=== PATIENT | female | born 1980 | race African-American/Black ===

== ENCOUNTER 2018-07-12 14:57 | Inpatient (IN) | payer OTHER ==
[2018-07-12 15:36] VITALS: BMI 24.4
--- NOTE | 2018-07-12 18:18 | HP ---
Admission [facility] - [facility] Chief Complaint: crack / cocaine rehab Allergies/Adverse Reactions: Allergies Allergy/AdvReac Type Severity Reaction Status Date / Time No Known Allergies Allergy Verified 07/12/18 17:15 History of Present Illness: 37 yo female with hx of nicotine and crack cocaine dependence is here seeking rehabilitation. Utox positive for opiate, reports tried heroin once two days ago. Last EOTH detox at [facility] March 2018, reports it was a one time occasion. Reports rehab [facility], reports sobriety for three years and recently relapse. PMHX: anemia. Denies any psychiatric history. Denies suicidal / homicidal ideation. Denies hx of seizures or blackouts. Exam Limitations: No Limitations - Ebola screening Have you traveled outside of the country in the last 21 days: No Have you had contact with anyone from an Ebola affected area: No Have you been sick,other than usual withdrawal symptoms: No - Review of Systems Constitutional: Changes in sleep, Unintentional Wgt. Loss (20 lbs in one year), Other (fatigue) EENT: reports: No Symptoms Reported Respiratory: reports: No Symptoms reported Cardiac: reports: No Symptoms Reported GI: reports: No Symptoms Reported : reports: No Symptoms Reported Musculoskeletal: reports: No Symptoms Reported Integumentary: reports: No Symptoms Reported Neuro: reports: No Symptoms reported Endocrine: reports: No Symptoms Reported Hematology: reports: See HPI Psychiatric: reports: Judgement Intact, Mood/Affect Appropiate, Orientated x3 Other Systems: Reviewed and Negative Patient History - Patient Medical History Hx Anemia: Yes Hx Asthma: No Hx Chronic Obstructive Pulmonary Disease (COPD): No Hx Cancer: No Hx Cardiac Disorders: No Hx Congestive Heart Failure: No Hx Hypertension: No Hx Hypercholesterolemia: No Hx Pacemaker: No HX Cerebrovascular Accident: No Hx Seizures: No Hx Dementia: No Hx Diabetes: No Hx Gastrointestinal Disorders: No Hx Liver Disease: No Hx Genitourinary Disorders: No Hx Sexually Transmitted Disorders: No Hx Renal Disease (ESRD): No Hx Thyroid Disease: No Hx Human Immunodeficiency Virus (HIV): No (last tested one year ago with negative results) Hx Hepatitis C: No Hx Depression: No Hx Suicide Attempt: No Hx Bipolar Disorder: No Hx Schizophrenia: No - Patient Surgical History Past Surgical History: Yes Hx Neurologic Surgery: No Hx Cataract Extraction: No Hx Cardiac Surgery: No Hx Lung Surgery: No Hx Breast Surgery: No Hx Breast Biopsy: No Hx Abdominal Surgery: No Hx Appendectomy: No Hx Cholecystectomy: No Hx Genitourinary Surgery: No Hx Section: Yes (4x ) Anesthesia Reaction: No - PPD History Previous Implant?: No Documented Results: Negative w/o proof PPD to be Administered?: Yes - Reproductive History Patient is a Female of Child Bearing Age (11 -55 yrs old): Yes Last Menstrual Period: 06/28/18 Patient : No - Smoking Cessation Smoking history: Current every day smoker Have you smoked in the past 12 months: Yes Aproximately how many cigarettes per day: 20 Hx Chewing Tobacco Use: No Initiated information on smoking cessation: Yes 'Breaking Loose' booklet given: 07/12/18 - Substance & Tx. History Hx Alcohol Use: Yes (detox March 2018) Hx Substance Use: Yes Substance Use Type: Cocaine Hx Substance Use Treatment: Yes Family Disease History - Family Disease History Family Disease History: Diabetes: Father (alive) Admission Physical Exam BHS - Vital Signs Vital Signs: Vital Signs - 24 hr 07/12/18 15:30 Temperature 98.5 F Pulse Rate 84 Respiratory 19 Rate Blood Pressure 120/74 - Physical General Appearance: Yes: Disheveled, Thin, Anxious HEENTM: Yes: EOMI, Hearing grossly Normal, Normal ENT Inspection, Normocephalic , Normal Voice, BELINDA, Pharynx Normal, Tm's normal Respiratory: Yes: Chest Non-Tender, Lungs Clear, Normal Breath Sounds, No Respiratory Distress, No Accessory Muscle Use Neck: Yes: Within Normal Limits Breast: Yes: Breast Exam Deferred Cardiology: Yes: Regular Rhythm, Regular Rate Abdominal: Yes: Normal Bowel Sounds, Non Tender, Flat, Soft Genitourinary: Yes: Within Normal Limits Back: Yes: Normal Inspection Musculoskeletal: Yes: full range of Motion, Gait Steady, Pelvis Stable Extremities: Yes: Normal Capillary Refill, Normal Inspection, Normal Range of Motion, Non-Tender Neurological: Yes: radiology manager II-XII NML intact, Fully Oriented, Alert, Motor Strength 5/5 Integumentary: Yes: Normal Color, Dry, Warm Lymphatic: Yes: Within Normal Limits - Diagnostic (1) Cocaine dependence Current Visit: Yes Status: Acute Qualifiers: Substance use status: uncomplicated Qualified Code(s): F14.20 - Cocaine dependence, uncomplicated (2) Nicotine dependence Current Visit: Yes Status: Acute Qualifiers: Nicotine product type: cigarettes (3) Anemia Current Visit: Yes Status: Suspected Qualifiers: Anemia type: unspecified type Qualified Code(s): D64.9 - Anemia, unspecified BHS Breath Alcohol Content Breath Alcohol Content: 0 Urine Pregancy Test - Result Urine Test Results: Negative- NO Line Present Urine Drug Screen - Results Drug Screen Negative: No Urine Drug Screen Results: BENIGNO-Cocaine, OPI-Opiates Inpatient Rehab Admission - Initial Determination Are CD services needed?: Yes Free of communicable disease: Yes Not in need of hospitalization: Yes - Rehab Admission Criteria Previous failed treatment: Yes Poor recovery environment: Yes Comorbidities: Yes Lacks judgement: Yes Patient is meeting Inpatient Rehab admission criteria:: Yes
[2018-07-12] MEDS ORDERED: guaiFENesin/D-METHORPHAN HB 10 ML UNIT-DOSE CUPS PO PRN (18:23)
[2018-07-12] MEDS ORDERED: hydrOXYzine PAMOATE 50 MG CAPSULE (FP) PO PRN (18:23)
[2018-07-12] MEDS ORDERED: MAGNESIUM HYDROX 2400MG/30ML ORAL SUSPENSION 30 ML CUP PO PRN (18:23)
[2018-07-12] MEDS ORDERED: MENTHOL/PHENOL 1 EACH UD MM PRN (18:23)
[2018-07-12] MEDS ORDERED: P-EPHED 60MG/TRIPROLIDI 2.5MG TABLET PO PRN (18:23)
[2018-07-12] MEDS ORDERED: MAG HYDROX/AL HYDROX/SIMETH 30 ML UNIT-DOSE CUP PO PRN (18:23)
[2018-07-12] MEDS ORDERED: LOPERAMIDE HCL 2 MG CAPSULE PO PRN (18:23)
[2018-07-12] MEDS ORDERED: ACETAMINOPHEN 325 MG TABLET (FP) PO PRN (18:23)
[2018-07-12] MEDS ORDERED: IBUPROFEN 400 MG TABLET (FP) PO PRN (18:23)
[2018-07-12] MEDS ORDERED: MAGNESIUM CITRATE 300 ML BOTTLE PO PRN (18:23)
[2018-07-12] MEDS ORDERED: NICOTINE POLACRILEX 2 MG GUM BC PRN (18:23)
[2018-07-12] MEDS ORDERED: THIAMINE HCL 100 MG TABLET (FP) PO SCH (22:00)
[2018-07-12] MEDS ORDERED: MELATONIN 5 MG TABLETS PO PRN (22:00)
[2018-07-12] MEDS ORDERED: TUBERCULIN PPD 5 TU/0.1ML VIAL ID ONE (22:28)
[2018-07-12 23:07] LABS: URINE APPEARANCE SLCLOUDY; URINE BILIRUBIN NEGATIVE (<2.0 mg/dL); URINE COLOR YELLOW; URINE GLUCOSE (UA) NEGATIVE (NEGATIVE); URINE KETONE NEGATIVE (NEGATIVE); URINE LEUK ESTERASE TRACE (NEGATIVE); URINE NITRITE NEGATIVE (NEGATIVE); URINE PROTEIN 1+ (NEGATIVE); URINE UROBILINOGEN 4.0 E.U/dl mg/dL (0.2-1.0)
[2018-07-12 23:10] LABS: EPI CELLS MODERATE /HPF (FEW); URINE MUCUS MODERATE
[2018-07-12] MEDS ORDERED: PT OWN MED DRAWER 7, Y5N ONE (23:21)
[2018-07-13 07:40] VITALS: TEMP 98.4
[2018-07-13] MEDS ORDERED: PRENATAL VITAMINS W/ FOLIC ACID TABLET (FP) PO SCH (10:00)
[2018-07-13] MEDS ORDERED: NICOTINE 21 MG/24 HOURS TOPICAL PATCH TD SCH (10:00)
[2018-07-13 10:42] LABS: HEMATOCRIT 23.3 % (32.4-45.2); MCHC 26.8 g/dl (32.0-36.0); MEAN CELL VOLUME 55.3 fl (80-96); PLATELET COUNT 296 K/MM3 (134-434); RBC 4.22 M/mm3 (3.60-5.2); RDW 19.5 % (11.6-15.6); WHITE BLOOD COUNT 4.6 K/mm3 (4.0-10.0)
[2018-07-13 10:46] LABS: MCH 14.8 pg (25.7-33.7)
[2018-07-13 10:50] LABS: HEMOGLOBIN 6.3 GM/dL (10.7-15.3)
--- NOTE | 2018-07-13 11:00 | EKG ---
Test Reason : Blood Pressure : / mmHG Vent. Rate : 078 BPM Atrial Rate : 078 BPM P-R Int : 126 ms QRS Dur : 076 ms QT Int : 360 ms P-R-T Axes : 036 067 054 degrees QTc Int : 410 ms SINUS RHYTHM WITH PREMATURE ATRIAL COMPLEXES OTHERWISE NORMAL ECG Confirmed by MD MONA, SHARIF ([id number]) on 07/13/2018 10:59:58 AM Referred By: Confirmed By:SHARIF DUNN MD
[2018-07-13 11:40] LABS: ALBUMIN 3.2 g/dl (3.4-5.0); ALK PHOS 53 U/L (45-117); ANION GAP 9 MMOL/L (8-16); BILIRUBIN,TOTAL 0.3 mg/dL (0.2-1); BLOOD UREA NITROGEN 10 mg/dL (7-18); CALCIUM 8.6 mg/dL (8.5-10.1); CHLORIDE 110 mmol/L (98-107); CO2 23 mmol/L (21-32); CREATININE 0.8 mg/dL (0.55-1.3); GLUCOSE,RANDOM 85 mg/dL (74-106); POTASSIUM 4.2 mmol/L (3.5-5.1); SGOT/AST 9 U/L (15-37); SGPT/ALT 13 U/L (13-61); SODIUM 142 mmol/L (136-145); TOT PROT 6.1 g/dl (6.4-8.2)
--- NOTE | 2018-07-13 14:13 | PN ---
[facility] Progress Note Note: THIS IS A 37 Y/O AA/FEMALE WITH A HX OF IRON DEFFICIENCY ANEMIA WHO WAS ADMITTED HERE FOR REHAB DUE TO HX OF COCAINE DEPENDENCE. PT WAS SEEN FOR ABNORMAL LAB RESULTS-LOW HGB LEVEL OF 6.3 MG/DL AND HEMATOCRIT 23.3. PT C/O SOB,FATIGUE. PT REPORTS HX OF CHRONIC IRON DEFICIENCY ANEMIA AND HX BLOOD TRANSFUSION SINCE AGE 18. REPORTS HX HEAVY MONTHLY PERIODS, LAST WAS TWO WEEKS AGO. PT ALSO REPORTS TX WITH IRON INJECTIONS. Vital Signs 07/13/18 07:40 Temperature 98.4 F Pulse Rate 90 Respiratory 18 Rate Blood Pressure 129/87 Laboratory Tests 07/12/18 07/13/18 07/13/18 21:20 07:20 07:20 WBC 4.6 RBC 4.22 Hgb 6.3 L* Hct 23.3 L MCV 55.3 L MCH 14.8 L MCHC 26.8 L RDW 19.5 H Plt Count 296 MPV 9.0 Sodium 142 Potassium 4.2 Chloride 110 H Carbon Dioxide 23 Anion Gap 9 BUN 10 Creatinine 0.8 Creat Clearance w eGFR > 60 Random Glucose 85 Calcium 8.6 Total Bilirubin 0.3 AST 9 L ALT 13 Alkaline Phosphatase 53 Total Protein 6.1 L Albumin 3.2 L Urine Color Yellow Urine Appearance Slcloudy Urine pH 7.0 Ur Specific [place] 1.025 Urine Protein 1+ H Urine Glucose (UA) Negative Urine Ketones Negative Urine Blood Negative Urine Nitrite Negative Urine Bilirubin Negative Urine Urobilinogen 4.0 e.u/dl H Ur Leukocyte Esterase Trace Urine WBC (Auto) 2 Urine RBC (Auto) <1 Ur Epithelial Cells Moderate Urine Mucus Moderate RPR Titer HIV 1&2 Antibody Screen HIV P24 Antigen 07/13/18 07/13/18 07:20 07:20 WBC RBC Hgb Hct MCV MCH MCHC RDW Plt Count MPV Sodium Potassium Chloride Carbon Dioxide Anion Gap BUN Creatinine Creat Clearance w eGFR Random Glucose Calcium Total Bilirubin AST ALT Alkaline Phosphatase Total Protein Albumin Urine Color Urine Appearance Urine pH Ur Specific [place] Urine Protein Urine Glucose (UA) Urine Ketones Urine Blood Urine Nitrite Urine Bilirubin Urine Urobilinogen Ur Leukocyte Esterase Urine WBC (Auto) Urine RBC (Auto) Ur Epithelial Cells Urine Mucus RPR Titer Nonreactive HIV 1&2 Antibody Screen Negative HIV P24 Antigen Negative CARDIAC: S1 S2 EARLY SYSTOLIC MURMUR ON AUSCULTATION EKG:NSR, NORMAL ECG LUNGS:CLEAR TO A/P MUCUS MEMBRANES:PALE CONJUCTIVA, UNDER TONGUE AND LIPS PLAN:TRANSFER TO [facility]IA [facility]ULANCE FOR EVALUATION AND POSSIBLE TREATMENT. DISCUSSED CASE WITH DR. BOLAÑOS AT THE ER WHO HAVE AGREED TO ACCEPT THE PATIENT. PT MAY COME BACK TO [facility] TO COMPLETE HER REHAB TREATMENT AFTER TREATMENT AND CLEARANCE.
[2018-07-13 14:14] VITALS: BP 147/83; PULSE 93
--- NOTE | 2018-07-14 11:45 | EKG ---
Test Reason : Blood Pressure : / mmHG Vent. Rate : 069 BPM Atrial Rate : 069 BPM P-R Int : 136 ms QRS Dur : 072 ms QT Int : 388 ms P-R-T Axes : 039 073 055 degrees QTc Int : 415 ms NORMAL SINUS RHYTHM NORMAL ECG WHEN COMPARED WITH ECG OF 12-JUL-2018 21:39, PREMATURE ATRIAL COMPLEXES ARE NO LONGER PRESENT Confirmed by FÁTIMA MCKEE MD ([id number]) on 07/14/2018 11:45:02 AM Referred By: Confirmed By:FÁTIMA MCKEE MD
== END 2018-07-13 22:55 | disposition short-term general hospital (02) | DRG 772 ==
LOC: YASAS 14:57 → Y3E 17:32
PROVIDERS: ADMIT Psychiatry & Neurology Psychiatry; ATTEND Psychiatry & Neurology Psychiatry
PROC: HZ42ZZZ Group Counseling for Substance Abuse Treatment, Cognitive-Behavioral (ICD-10-PCS; principal; 2018-07-12)
DX: F14.20 Cocaine dependence, uncomplicated (principal); F17.210 Nicotine dependence, cigarettes, uncomplicated; D50.9 Iron deficiency anemia, unspecified
CPT/HCPCS: 36415; 80053; 81003; 81015; 85027; 86593; 87389; 93005; 93010

== ENCOUNTER 2018-07-13 15:11 | Observation (INO) | payer OTHER ==
[2018-07-13 15:26] VITALS: BMI 26.4
--- NOTE | 2018-07-13 15:51 | PDOC ---
History of Present Illness - General Chief Complaint: Revisit, Lab Variance Stated Complaint: low H&H hx of anemia Time Seen by Provider: 07/13/18 15:17 History Source: Patient Exam Limitations: No Limitations - History of Present Illness Initial Comments: 07/13/18 15:47 Patient is a 37F with history of cocaine abuse and iron deficiency anemia here today complaining of a low hemoglobin level at [facility]. She states that she has been dyspneic on exertion and weak more lately but she thought that was due to the smoking. Patient also endorses a history of heavy menstruation, last menstruation ended two weeks ago. Denies blood in stool/vomit, diarrhea, melena. Denies fevers, chills. Last use of cocaine 2 days ago. Patient states that she used heroin two days ago but is not a regular user. Patient reports history of transfusions at [facility] in [place]. Past History - Past Medical History Allergies/Adverse Reactions: Allergies Allergy/AdvReac Type Severity Reaction Status Date / Time No Known Allergies Allergy Verified 07/12/18 17:15 Home Medications: Ambulatory Orders NK [No Known Home Medication] 07/12/18 Anemia: Yes Asthma: No Cancer: No Cardiac Disorders: No CVA: No COPD: No CHF: No Dementia: No Diabetes: No GI Disorders: No Disorders: No HTN: No Hypercholesterolemia: No Kidney Stones: No Liver Disease: No Seizures: No Thyroid Disease: No - Surgical History Abdominal Surgery: No Appendectomy: No Cardiac Surgery: No Cholecystectomy: No Lung Surgery: No Neurologic Surgery: No - Reproductive History PID: No - Suicide/Smoking/Psychosocial Hx Smoking History: Unknown if ever smoked Have you smoked in the past 12 months: Yes Number of Cigarettes Smoked Daily: 20 'Breaking Loose' booklet given: 07/12/18 Hx Alcohol Use: Yes (detox March 2018) Drug/Substance Use Hx: Yes Substance Use Type: Cocaine Hx Substance Use Treatment: No Review of Systems - Review of Systems Comments:: 07/13/18 15:55 GENERAL/CONSTITUTIONAL: No fever or chills. No weakness. HEAD, EYES, EARS, NOSE AND THROAT: No change in vision. No sore throat. CARDIOVASCULAR: No chest pain +shortness of breath RESPIRATORY: No cough, wheezing, or hemoptysis. GASTROINTESTINAL: No nausea, vomiting, diarrhea or constipation. GENITOURINARY: No dysuria, frequency, or change in urination. MUSCULOSKELETAL: No joint or muscle swelling or pain. No neck or back pain. SKIN: No rash NEUROLOGIC: No headache, vertigo, loss of consciousness, or change in strength/ sensation. ENDOCRINE: No increased thirst. No abnormal weight change HEMATOLOGIC/LYMPHATIC: No anemia, easy bleeding, or history of blood clots. ALLERGIC/IMMUNOLOGIC: No hives or skin allergy. *Physical Exam - Vital Signs Last Vital Signs Temp Pulse Resp BP Pulse Ox 98.4 F 93 H 20 147/83 98 07/13/18 15:18 07/13/18 15:18 07/13/18 15:18 07/13/18 15:18 07/13/18 15:18 - Physical Exam Comments: 07/13/18 15:57 GENERAL: Awake, alert, and fully oriented, in no acute distress HEAD: No signs of trauma, normocephalic, atraumatic EYES: PERRLA, EOMI, sclera anicteric, conjunctiva clear ENT: Auricles normal inspection, hearing grossly normal, nares patent, oropharynx clear without exudates. Moist mucosa NECK: Normal ROM, supple, no lymphadenopathy, JVD, or masses LUNGS: No distress, speaks full sentences, clear to auscultation bilaterally HEART: Regular rate and rhythm, normal S1 and S2, no murmurs, rubs or gallops, peripheral pulses normal and equal bilaterally. ABDOMEN: Soft, nontender, normoactive bowel sounds. No guarding, no rebound. No masses EXTREMITIES: Normal inspection, Normal range of motion, no edema. No clubbing or cyanosis. NEUROLOGICAL: Cranial nerves II through XII grossly intact. Normal speech, normal gait, no focal sensorimotor deficits SKIN: Warm, Dry, normal turgor, no rashes or lesions noted. ED Treatment Course - LABORATORY CBC & Chemistry Diagram: 07/13/18 16:28 07/13/18 16:28 Medical Decision Making - Medical Decision Making 07/13/18 15:57 Patient is a 37F with history of iron deficiency anemia and cocaine abuse here today for anemia (hgb 6.3). Drug screen positive for cocaine and heroin. Patient denies chest pain, endorses feeling tired and shortness of breath on exertion. Labs already drawn this morning. Will admit to hospitalist. Admitted to Dr Tavarez. 07/13/18 17:16 EKG shows normal sinus rhythm with rate of 77. No st elevations/depressions. Normal axis. Normal intervals. No significant t wave abnormalities. *DC/Admit/Observation/Transfer Diagnosis at time of Disposition: Anemia - Discharge Dispostion Condition at time of disposition: Stable Decision to Admit order: Yes - Referrals - Patient Instructions - Post Discharge Activity
--- NOTE | 2018-07-13 16:01 | PDOC ---
Attending Attestation - Resident Resident Name: Evan Payne - ED Attending Attestation I have performed the following: I have examined & evaluated the patient, The case was reviewed & discussed with the resident, I agree w/resident's findings & plan - HPI HPI: 07/13/18 15:59 37-year-old female rehabilitation patient at [facility] sent for medical evaluation of symptomatic anemia found on routine admission labs. - Physicial Exam PE: 07/13/18 15:59 Vitals as noted, hemodynamically stable. lungs clear, heart regular with slight tachy no edema or calf ttp - Medical Decision Making 07/13/18 16:00 37y/o F sent for management of symptomatic anemia, Hgb 6.3. t+c, transfuse prbc admit Heart Score/ECG Review #1 ECG reviewed & interpreted by me at: 16:48 General ECG Interpretation: Sinus Rhythm, Normal Rate (77), Normal Intervals ( qtc 418), No acute ischemic changes
--- NOTE | 2018-07-13 16:20 | HP ---
CHIEF COMPLAINT:Low hemoglobin [place] [facility] [place]ISTORY OF PRESENT ILLNESS: 37F PMH of iron deficiency anemia, crack cocaine use, and nicotine dependance, presents to the hospital from [facility] for low hemoglobin. Patient was admitted to inpatient rehab services for crack use. She did not need detox. She [place] [facility] [place] came here to get out of her environment so she could get clean and sober. She states that at the reh[place] [facility] too many familiar faces and it is very easy for her to leave to use. She states she has had iron deficiency anemia for the past 16 years. She states she was worked up by WEIGHT LOSS COUNSELOR and found to have fibroids as the cause of her iron deficiency anemia. She has menorrhagia due to fibroids and uses about 6 pads a day when she is having her menstrual periods. She endorses occasional spotting in between. She was worked up but never went back. She has had multiple transfusion and iron infusions. Last transfusion and iron infusion about 1 year ago. She states she was feeling weak and short of breath and attributed the shortness of breath to cigarette smoking and deconditioning but when she gave her history of anemia to [facility] they naheed labs and found her Hb to be 6.3 so she was sent to the ED for transfusion. She used to see a merchandise manager but hasn't seem on in about a year due to her substance abuse. She currently denies nausea vomiting fever chills chest pain urinary or GI symptoms. Endorses feeling weak and mild shortness of breath. Her last use was 2 days ago. Patient also had positive urine for opioids and she admits to trying heroin once 2 days ago. She expressed interest in wanting to go back to see her merchandise manager [place] [facility] [place] whom she has a relationship with. She also was worked up by GI with a colonoscopy and was WNL per patient. She endorses GERD symptoms. ER course was notable for: (1)Labs Recent Travel:Denies PAST MEDICAL HISTORY:As above PAST SURGICAL HISTORY: tubal ligation Social History: SmokinPPD Alcohol:Denies Drugs: Smokes Crack cocaine Family History: Allergies No Known Allergies Allergy (Verified 07/12/18 17:15) HOME MEDICATIONS: Home Medications Medication Instructions Recorded NK [No Known Home Medication] 07/12/18 REVIEW OF SYSTEMS CONSTITUTIONAL: Absent: fever, chills, diaphoresis, malaise, loss of appetite, weight change Present:generalized weakness HEENT: Absent: rhinorrhea, nasal congestion, throat pain, throat swelling, difficulty swallowing, mouth swelling, ear pain, eye pain, visual changes CARDIOVASCULAR: Absent: chest pain, syncope, palpitations, irregular heart rate, lightheadedness , peripheral edema RESPIRATORY: Absent: cough, orthopnea, wheezing, stridor, hemoptysis Present:shortness of breath, dyspnea with exertion GASTROINTESTINAL: Absent: abdominal pain, abdominal distension, nausea, vomiting, diarrhea, constipation, melena, hematochezia GENITOURINARY: Absent: dysuria, frequency, urgency, hesitancy, hematuria, flank pain, genital pain MUSCULOSKELETAL: Absent: myalgia, arthralgia, joint swelling, back pain, neck pain SKIN: Absent: rash, itching, pallor HEMATOLOGIC/IMMUNOLOGIC: Absent: easy bleeding, easy bruising, lymphadenopathy, frequent infections ENDOCRINE: Absent: unexplained weight gain, unexplained weight loss, heat intolerance, cold intolerance NEUROLOGIC: Absent: headache, focal weakness or paresthesias, dizziness, unsteady gait, seizure, mental status changes, bladder or bowel incontinence PSYCHIATRIC: Absent: anxiety, depression, suicidal or homicidal ideation, hallucinations. PHYSICAL EXAMINATION Vital Signs - 24 hr 07/13/18 15:18 Temperature 98.4 F Pulse Rate 93 H Respiratory 20 Rate Blood Pressure 147/83 O2 Sat by Pulse 98 Oximetry (%) GENERAL: Awake, alert, and fully oriented, in no acute distress. HEAD: Normal with no signs of trauma. EYES: Pupils equal, round and reactive to light, extraocular movements intact, + conjunctival pallor EARS, NOSE, THROAT: Moist mucous membranes. NECK: Normal range of motion, supple without JVD LUNGS: Breath sounds equal, clear to auscultation bilaterally. No accessory muscle use. HEART: Regular rate and rhythm, normal S1 and S2. Possibly a very soft flow murmur. Loud in the emergency room so difficult to hear ABDOMEN: Soft, nontender, not distended, normoactive bowel sounds MUSCULOSKELETAL: No CVA tenderness. UPPER EXTREMITIES: warm, well-perfused. No peripheral edema. LOWER EXTREMITIES: warm, well-perfused. No calf tenderness. No peripheral edema. NEUROLOGICAL: Cranial nerves II-XII intact. Normal speech. Gait not observed PSYCHIATRIC: Cooperative. Good eye contact. Appropriate mood and affect. SKIN: Warm, dry, normal turgor ASSESSMENT/PLAN: 37F with history of crack cocaine use, presents to the hospital from [facility] rehab for symptomatic anemia. Acute on chronic symptomatic iron deficiency anemia:Patient with fibroids and menorrhagia. Place on Observation Type and cross Transfuse 2 units PRBCs Trend CBC Patient wants to go back to see primary merchandise manager in [place] Refer back to WEIGHT LOSS COUNSELOR for treatment of fibroids Refer back to GI for possible EGD and further work up. Substance abuse:smokes crack cocaine Send back to [facility] for continued inpatient rehab Counselled on drug abuse cessation counselled on going to meetings and continuing rehab and intensive outpatient therapy after rehab Nicotine Dependance: Nicotine patch counselled on smoking cessation FEN: No IVF No electrolyte issues Regular diet PPx: SCDs/Early ambulation Case discussed with Dr. Tavarez Visit type - Emergency Visit Emergency Visit: Yes ED Registration Date: 07/13/18 Care time: The patient presented to the Emergency Department on the above date and was hospitalized for further evaluation of their emergent condition. - New Patient This patient is new to me today: Yes Date on this admission: 07/13/18 - Critical Care Critical Care patient: No Hospitalist Screening - Colonoscopy Questionnaire Colonoscopy Questionnaire: Colonoscopy Questionnaire - Patient: 50 - 75 years old and never had a screening colonoscopy: No (patient had colonoscopy a few years ago and was normal per patient) History of colon or rectal polyps, or CA: No History of IBD, Crohn's disease or UC: No History of abdominal radiation therapy as a child: No - Relative: 1 with colon or rectal CA, or polyps at age 60 or younger: No Colon or rectal CA diagnosed at age 45 or younger: No Multiple relatives with colon or rectal CA: No - Outcome: Screening Result: Negative Screen
[2018-07-13 16:36] LABS: HEMATOCRIT 24.1 % (32.4-45.2); MCHC 26.6 g/dl (32.0-36.0); MEAN CELL VOLUME 55.7 fl (80-96); MEAN PLT VOLUME 8.7 fl (7.5-11.1); PLATELET COUNT 327 K/MM3 (134-434); RBC 4.33 M/mm3 (3.60-5.2); RDW 19.6 % (11.6-15.6); WHITE BLOOD COUNT 5.4 K/mm3 (4.0-10.0)
[2018-07-13 16:44] LABS: MCH 14.8 pg (25.7-33.7)
[2018-07-13 16:46] LABS: HEMOGLOBIN 6.4 GM/dL (10.7-15.3)
[2018-07-13 16:52] LABS: INR 1.1 (0.83-1.09); PROTHROMBIN TIME (PATIENT) 12.4 SEC (9.7-13.0)
[2018-07-13 17:12] LABS: ALBUMIN 3.4 g/dl (3.4-5.0); ALK PHOS 58 U/L (45-117); ANION GAP 7 MMOL/L (8-16); BILIRUBIN,TOTAL 0.2 mg/dL (0.2-1); BLOOD UREA NITROGEN 8 mg/dL (7-18); CALCIUM 8.8 mg/dL (8.5-10.1); CHLORIDE 109 mmol/L (98-107); CO2 26 mmol/L (21-32); CREATININE 0.8 mg/dL (0.55-1.3); GLUCOSE,RANDOM 84 mg/dL (74-106); POTASSIUM 4.2 mmol/L (3.5-5.1); SGOT/AST 8 U/L (15-37); SGPT/ALT 13 U/L (13-61); SODIUM 142 mmol/L (136-145); TOT PROT 6.6 g/dl (6.4-8.2)
--- NOTE | 2018-07-13 18:31 | PN ---
Teaching Attending Note Name of Resident: Tyrone Colvin ATTENDING PHYSICIAN STATEMENT I saw and evaluated the patient. I reviewed the resident's note and discussed the case with the resident. I agree with the resident's findings and plan as documented with exceptions below. SUBJECTIVE: 37 yof with PMHx of cocaine abuse, anemia requiring multiple transfusions/IV iron, last a year ago, lost to follow up, also with reported menorrhagia/ Fibroids (not seen a senior director of global commercial technology solutions for the same), went to [facility] requesting cocaine detox, sent in with Hb 6.4 sent to ED. Patient reports fatigue, some exertional dyspnea, over last some time. Also reports heavy periods, lasting 5 days with intermittent spotting for a long time. Was told about 'fibroids' in the past but never followed up. No dark or blood stools or other concerns. Had colonoscopy few years ago reportedly unremarkable. Reports some GERD like symptoms intermittently, takes Aleve with her periods. Overall feels well currently. Reports using heroine a day ago but last use was reportedly years ago. 12 point ROS done, neg except above. OBJECTIVE: Vital Signs Period Temp Pulse Resp BP Sys/Alberts Pulse Ox Last 24 Hr 98.4 F-98.6 F 82-93 18-20 124-147/83-95 98-100 Intake & Output 07/10/18 07/11/18 07/12/18 07/13/18 23:59 23:59 23:59 23:59 Weight 135 lb GENERAL: Awake, alert, and fully oriented, in no acute distress. HEAD: Normal with no signs of trauma. EYES: Pupils equal, round and reactive to light, extraocular movements intact, sclera anicteric, conjunctiva clear. No lid lag, pos pallor. EARS, NOSE, THROAT: Ears normal, nares patent, oropharynx clear without exudates. Moist mucous membranes. NECK: Normal range of motion, supple without lymphadenopathy, JVD, or masses. LUNGS: Breath sounds equal, clear to auscultation bilaterally. No wheezes, and no crackles. No accessory muscle use. HEART: Regular rate and rhythm, normal S1 and S2 without murmur, rub or gallop. ABDOMEN: Soft, nontender, not distended, normoactive bowel sounds, no guarding, no rebound, no masses. No hepatomegaly or splenomegaly. no suprapubic or CVA tenderness MUSCULOSKELETAL: Normal range of motion at all joints. No bony deformities or tenderness. No CVA tenderness. UPPER EXTREMITIES: 2+ pulses, warm, well-perfused. No cyanosis. No clubbing. No peripheral edema. LOWER EXTREMITIES: 2+ pulses, warm, well-perfused. No calf tenderness. No peripheral edema. NEUROLOGICAL: Cranial nerves II-XII intact. Normal speech. PSYCHIATRIC: Cooperative. Good eye contact. Appropriate mood and affect. SKIN: Warm, dry, normal turgor, no rashes or lesions noted, normal capillary refill. Home Medications Medication Instructions Recorded NK [No Known Home Medication] 07/12/18 Active Medications Nicotine (Nicoderm Patch -) 21 mg TD DAILY RADHA Laboratory Results - last 24 hr 07/13/18 07/13/18 07/13/18 16:23 16:28 16:28 WBC 5.4 RBC 4.33 Hgb 6.4 L* Hct 24.1 L MCV 55.7 L MCH 14.8 L MCHC 26.6 L RDW 19.6 H Plt Count 327 MPV 8.7 PT with INR INR Sodium Potassium Chloride Carbon Dioxide Anion Gap BUN Creatinine Creat Clearance w eGFR Random Glucose Calcium Total Bilirubin AST ALT Alkaline Phosphatase Total Protein Albumin Serum , Qual Negative Crossmatch See Detail 07/13/18 07/13/18 16:28 16:28 WBC RBC Hgb Hct MCV MCH MCHC RDW Plt Count MPV PT with INR 12.40 INR 1.10 H Sodium 142 Potassium 4.2 Chloride 109 H Carbon Dioxide 26 Anion Gap 7 L BUN 8 Creatinine 0.8 Creat Clearance w eGFR > 60 Random Glucose 84 Calcium 8.8 Total Bilirubin 0.2 AST 8 L ALT 13 Alkaline Phosphatase 58 Total Protein 6.6 Albumin 3.4 Serum , Qual Crossmatch EKG NSR, T inversion in V1-V2 ASSESSMENT AND PLAN: 37 yof with chronic anemia, menorrhagia, ?fibroids, cocaine abuse admitted with symptomatic anemia -Symptomatic anemia, suspect from menorrhagia/?fibroids -Cocaine abuse -Heroine use Plan: Transfuse 2 units PRBC. Patient counseled on outpatient senior director of global commercial technology solutions follow up and interval CBC monitoring. HEmatology follow up as indicated. Drug cessation counseling. Detox consult. DVTPPX low risk Dispo d/c to [facility] in AM if h/h improved and no new concerns. Plan discussed with patient in detail, all questions answered. Total admit time 55 min.
[2018-07-13] MEDS: NICOTINE 21 MG/24 HOURS TOPICAL PATCH TD SCH (18:46)
[2018-07-14 07:46] LABS: HEMATOCRIT 31.2 % (32.4-45.2); HEMOGLOBIN 9.2 GM/dL (10.7-15.3); MCHC 29.3 g/dl (32.0-36.0); MEAN PLT VOLUME 8.7 fl (7.5-11.1); PLATELET COUNT 292 K/MM3 (134-434); RBC 5.04 M/mm3 (3.60-5.2); RDW 29.4 % (11.6-15.6); WHITE BLOOD COUNT 7.3 K/mm3 (4.0-10.0)
[2018-07-14 07:50] LABS: MCH 18.2 pg (25.7-33.7)
[2018-07-14] MEDS: NICOTINE 21 MG/24 HOURS TOPICAL PATCH TD SCH (09:24)
--- NOTE | 2018-07-14 12:31 | PN ---
Teaching Attending Note Name of Resident: Ashlee Dick ATTENDING PHYSICIAN STATEMENT I saw and evaluated the patient. I reviewed the resident's note and discussed the case with the resident. I agree with the resident's findings and plan as documented with exceptions below. SUBJECTIVE: patient seen and examined. no dyspnea. no further weakness or fatigue, feels well. OBJECTIVE: Vital Signs Period Temp Pulse Resp BP Sys/Alberts Pulse Ox Last 24 Hr 98 F-98.6 F 73-93 18-20 121-147/64-95 98-100 Intake & Output 07/11/18 07/12/18 07/13/18 07/14/18 23:59 23:59 23:59 23:59 Intake Total 600 1000 Balance 600 1000 Weight 124 lb 5 oz general: sitting in bed in no acute distress CVS;S1S2 regular Chest: CTAB, no rales or wheezing Abdomen:Soft, NT, ND, positive bowel sounds Extremities: no edema or tremors Home Medications Medication Instructions Recorded Docusate Sodium [Colace -] 100 mg PO BID #60 capsule 07/14/18 Ferrous Sulfate [Feosol] 325 mg PO DAILY #30 tablet 07/14/18 Laboratory Results - last 24 hr 07/13/18 07/13/18 07/13/18 16:15 16:23 16:28 WBC 5.4 RBC 4.33 Hgb 6.4 L* Hct 24.1 L MCV 55.7 L MCH 14.8 L MCHC 26.6 L RDW 19.6 H Plt Count 327 MPV 8.7 PT with INR INR Sodium Potassium Chloride Carbon Dioxide Anion Gap BUN Creatinine Creat Clearance w eGFR Random Glucose Calcium Ferritin Total Bilirubin AST ALT Alkaline Phosphatase Total Protein Albumin Serum , Qual Blood Type B POSITIVE B POSITIVE Antibody Screen Negative Crossmatch See Detail 07/13/18 07/13/18 07/13/18 16:28 16:28 16:28 WBC RBC Hgb Hct MCV MCH MCHC RDW Plt Count MPV PT with INR 12.40 INR 1.10 H Sodium 142 Potassium 4.2 Chloride 109 H Carbon Dioxide 26 Anion Gap 7 L BUN 8 Creatinine 0.8 Creat Clearance w eGFR > 60 Random Glucose 84 Calcium 8.8 Ferritin Total Bilirubin 0.2 AST 8 L ALT 13 Alkaline Phosphatase 58 Total Protein 6.6 Albumin 3.4 Serum , Qual Negative Blood Type Antibody Screen Crossmatch 07/14/18 07/14/18 07:09 07:09 WBC 7.3 RBC 5.04 Hgb 9.2 L Hct 31.2 L D MCV 62.0 L D MCH 18.2 L D MCHC 29.3 L RDW 29.4 H Plt Count 292 MPV 8.7 PT with INR INR Sodium Potassium Chloride Carbon Dioxide Anion Gap BUN Creatinine Creat Clearance w eGFR Random Glucose Calcium Ferritin 2.6 L Total Bilirubin AST ALT Alkaline Phosphatase Total Protein Albumin Serum , Qual Blood Type Antibody Screen Crossmatch ASSESSMENT AND PLAN: 37 yof with chronic anemia, menorrhagia, ?fibroids, cocaine abuse admitted with symptomatic anemia -Symptomatic anemia, suspect from menorrhagia/?fibroids/iron deficiency -Cocaine abuse -Heroine use Plan: Appropriate response to PRBC. Start PO Fe with colace. Patient counseled on regular CBC monitoring, Fe suppl and outpatient GI/Computer Security Coordinator follow up. She relays understanding and in agreement. D/c to [facility] today. Plan discussed with patient in detail, all questions answered.
[2018-07-14 12:39] VITALS: BP 135/83; PULSE 76; TEMP 98
--- NOTE | 2018-07-14 13:23 | EKG ---
Test Reason : Blood Pressure : / mmHG Vent. Rate : 077 BPM Atrial Rate : 077 BPM P-R Int : 132 ms QRS Dur : 072 ms QT Int : 370 ms P-R-T Axes : 018 047 041 degrees QTc Int : 418 ms NORMAL SINUS RHYTHM NORMAL ECG WHEN COMPARED WITH ECG OF 13-JUL-2018 11:13, NO SIGNIFICANT CHANGE WAS FOUND Confirmed by FÁTIMA MCKEE MD ([id number]) on 07/14/2018 1:22:57 PM Referred By: Confirmed By:FÁTIMA MCKEE MD
--- NOTE | 2018-07-14 17:52 | DS ---
Physical Exam: SUBJECTIVE: Patient seen and examined at bedside this morning. No acute events overnight. Patient denies weakness and shortness of breath, and reports that she feels well. OBJECTIVE: Vital Signs Period Temp Pulse Resp BP Sys/Alberts Pulse Ox Last 24 Hr 98 F-98.6 F 73-81 18-20 122-136/64-83 100-100 PHYSICAL EXAM GENERAL: The patient is awake, alert, and fully oriented, in no acute distress. NECK: Trachea midline, full range of motion, supple. LUNGS: Breath sounds equal, clear to auscultation bilaterally. HEART: Regular rate and rhythm, S1, S2 without murmur, rub or gallop. ABDOMEN: Soft, nontender, nondistended, normoactive bowel sounds. EXTREMITIES: 2+ pulses, warm, well-perfused, no edema. NEUROLOGICAL: Cranial nerves II through XII grossly intact. Normal speech, gait not observed. PSYCH: Normal mood, normal affect. SKIN: Warm, dry, normal turgor, no rashes or lesions noted. LABS Laboratory Results - last 24 hr 07/13/18 07/13/18 07/14/18 16:15 16:23 07:09 WBC 7.3 RBC 5.04 Hgb 9.2 L Hct 31.2 L D MCV 62.0 L D MCH 18.2 L D MCHC 29.3 L RDW 29.4 H Plt Count 292 MPV 8.7 Ferritin Blood Type B POSITIVE B POSITIVE Antibody Screen Negative Crossmatch See Detail 07/14/18 07:09 WBC RBC Hgb Hct MCV MCH MCHC RDW Plt Count MPV Ferritin 2.6 L Blood Type Antibody Screen Crossmatch HOSPITAL COURSE: Date of Admission:07/13/18 Date of Discharge: 07/14/18 Patient is a 37 year old female with past medical history of iron deficiency anemia, cocaine use and nicotine dependence, presented from [facility] due to weakness and shortness of breath, and found to have Hgb 6.3. Patient was transfused with 2 units of pRBC. Iron studies were done. Repeat CBC revealed Hgb 9.2. Patient was discharged to [facility] with instructions to continue taking iron supplements and to follow-up with primary care doctor for interval CBC monitoring. Patient was also advised to follow-up with OB-MUSICIAN INSTRUMENTAL for the fibroids. Minutes to complete discharge: 40 Discharge Summary Reason For Visit: ANEMIA Condition: Stable - Instructions Diet, Activity, Other Instructions: You were hospitalized here due to low blood counts. We gave you 2 units of blood and repeated your counts afterwards which were normal. In addition, your iron was checked again and your levels were low. Medications: We recommend continuing iron supplementation 325mg by MOUTH DAILY --This can be constipating so if you don't have regular bowel movements you can use over the counter stool softeners (like "Miralax" or "Colace" to help ) Your iron stores are very low and further iron level testing in pending Please have your medical doctor follow up on the results in 1-2 weeks and continue with iron supplementation as recommended above. Follow-up: You are going to be discharged back to [facility] to continue your inpatient rehab We recommend to follow-up with your ASSEMBLING FABRICATOR regularly due to your fibroids We recommend to follow-up with your GI doctor in [place] to see if he wants to do another scope Please follow with your primary care doctor. You are strongly advised to have your blood test (CBC) done at regular intervals with your doctor. You are being discharged to [facility] for continued management. Referrals: Ashley Gallegos MD [Primary Care Provider] - Disposition: I.P. ALCOHOL/SUBS ABUSE REHAB - Home Medications Comprehensive Discharge Medication List: Ambulatory Orders Docusate Sodium [Colace -] 100 mg PO BID #60 capsule 07/14/18 Ferrous Sulfate [Feosol] 325 mg PO DAILY #30 tablet 07/14/18 This patient is new to me today: Yes Date on this admission: 07/18/18 Emergency Visit: Yes ED Registration Date: 07/13/18 Care time: The patient presented to the Emergency Department on the above date and was hospitalized for further evaluation of their emergent condition. Critical Care patient: No - Discharge Referral Referred to [facility] Med P.C.: No
[2018-07-15 08:06] LABS: SERUM IRON SATURATION 13 % (15-55); TOTAL IRON BINDING CAPACITY 365 ug/dL (250-450); UIBC 317 ug/dL (131-425)
== END 2018-07-14 15:31 | disposition other institution (70) ==
LOC: JER 15:11 → JERBED 15:59 → J5S 18:12
PROVIDERS: ADMIT Hospitalist; ATTEND Hospitalist
PROC: 30233N1 Transfusion of Nonautologous Red Blood Cells into Peripheral Vein, Percutaneous Approach (ICD-10-PCS; principal; 2018-07-13)
DX: D64.9 Anemia, unspecified (principal); F14.10 Cocaine abuse, uncomplicated; F11.90 Opioid use, unspecified, uncomplicated
CPT/HCPCS: 36415; 36430; 80053; 82728; 83540; 83550; 84703; 85027; 85610; 86850; 86900; 86901; 86922; 93005; 93010; 99285-25; G0378; P9038; P9058

== ENCOUNTER 2018-07-14 17:01 | Inpatient (IN) | payer OTHER ==
[2018-07-14 17:30] VITALS: BMI 24.4
[2018-07-14] MEDS ORDERED: ACETAMINOPHEN 325 MG TABLET (FP) PO PRN (18:39)
[2018-07-14] MEDS ORDERED: IBUPROFEN 400 MG TABLET (FP) PO PRN (18:39)
[2018-07-14] MEDS ORDERED: MAG HYDROX/AL HYDROX/SIMETH 30 ML UNIT-DOSE CUP PO PRN (18:39)
[2018-07-14] MEDS ORDERED: MAGNESIUM CITRATE 300 ML BOTTLE PO PRN (18:39)
[2018-07-14] MEDS ORDERED: hydrOXYzine PAMOATE 50 MG CAPSULE (FP) PO PRN (18:39)
[2018-07-14] MEDS ORDERED: guaiFENesin/D-METHORPHAN HB 10 ML UNIT-DOSE CUPS PO PRN (18:39)
[2018-07-14] MEDS ORDERED: LOPERAMIDE HCL 2 MG CAPSULE PO PRN (18:39)
[2018-07-14] MEDS ORDERED: P-EPHED 60MG/TRIPROLIDI 2.5MG TABLET PO PRN (18:39)
[2018-07-14] MEDS ORDERED: MAGNESIUM HYDROX 2400MG/30ML ORAL SUSPENSION 30 ML CUP PO PRN (18:39)
[2018-07-14] MEDS ORDERED: MENTHOL/PHENOL 1 EACH UD MM PRN (18:39)
--- NOTE | 2018-07-14 18:48 | PN ---
[facility] Progress Note Note: Vital Signs Temperature 98.0 F 07/14/18 17:24 Pulse Rate 67 07/14/18 17:24 Respiratory Rate 18 07/14/18 17:24 Blood Pressure 140/70 07/14/18 17:24 O2 Sat by Pulse Oximetry (%) Patient was admitted 07/12/18 to rehab at out facility for crack /cocaine dependence, and [facility] after she was evaluated on 07/13/18 for anemia. During her admission patient receive 2 units of blood and was stabilized. Patient Aox3, currently stable. Upon discharge from [facility] the following recommendations were made: Follow-up: [place] [facility] [place] We recommend to follow-up with your CONTRACT ASSOCIATE MANAGER regularly due to your fibroids We recommend to follow-up with your GI doctor in [place] to see if he wants to do another scope Please follow with your primary care doctor. You are strongly advised to have your blood test (CBC) done at regular intervals with your doctor. Meds Docusate Sodium [Colace -] 100 mg PO BID #60 capsule 07/14/18 Ferrous Sulfate [Feosol] 325 mg PO DAILY #30 tablet 07/14/18
[2018-07-14] MEDS: THIAMINE HCL 100 MG TABLET (FP) PO SCH (21:44)
[2018-07-14] MEDS: DOCUSATE SODIUM 100 MG CAPSULE (FP) PO SCH (21:44)
[2018-07-14] MEDS ORDERED: MELATONIN 5 MG TABLETS PO PRN (22:00)
[2018-07-15] MEDS: PRENATAL VITAMINS W/ FOLIC ACID TABLET (FP) PO SCH (09:37)
[2018-07-15] MEDS: DOCUSATE SODIUM 100 MG CAPSULE (FP) PO SCH ×2 (09:37→21:46)
[2018-07-15] MEDS: FERROUS SO4 325 MG TABLET (FP) PO SCH (09:37)
[2018-07-15] MEDS: THIAMINE HCL 100 MG TABLET (FP) PO SCH (21:46)
[2018-07-16] MEDS: PRENATAL VITAMINS W/ FOLIC ACID TABLET (FP) PO SCH (09:49)
[2018-07-16] MEDS: FERROUS SO4 325 MG TABLET (FP) PO SCH (09:49)
[2018-07-16] MEDS: DOCUSATE SODIUM 100 MG CAPSULE (FP) PO SCH ×2 (09:49→21:33)
--- NOTE | 2018-07-16 10:07 | HP ---
Psychiatrist Admission - Data Date of interview: 07/16/18 Admission source: [facility] Identifying data: This is the first admission to [address] [place] [address] for this 37 years old single mother of 4 AA female(children reside with thier grandmother).Patient resides with her boyfriend,supported by PA. Medical History: Significant for Anemia,4 Cesarian sections,Breast cysts removal about 5 yo. Psychiatric History: denies Physical/Sexual Abuse/Trauma History: denies Vital Signs: Vital Signs - 24 hr 07/16/18 07/16/18 03:30 07:12 Temperature 98.4 F Pulse Rate 78 Respiratory 16 16 Rate Blood Pressure 122/80 Allergies/Adverse Reactions: Allergies Allergy/AdvReac Type Severity Reaction Status Date / Time No Known Allergies Allergy Verified 07/14/18 17:24 Date of last physical exam: 07/14/18 Concur with the findings of this exam: Yes - Substance Abuse/Tx History Hx Alcohol Use: No Hx Substance Use: Yes (cocaine since 27 yo,crack about the same time ,spendong $ 100) Substance Use Type: Cocaine Hx Substance Use Treatment: Yes (completed 21 months residential program 6 yo) Mental Status Exam - Mental Status Exam Alert and Oriented to: Time, Place, Person Cognitive Function: Grossly Intact Patient Appearance: Well Groomed Mood: Euthymic Affect: Appropriate, Mood Congruent Patient Behavior: Cooperative Speech Pattern: Clear Voice Loudness: Normal Thought Process: Goal Oriented Thought Disorder: Not Present Hallucinations: Denies Suicidal Ideation: Denies Homicidal Ideation: Denies Insight/Judgement: Fair Sleep: Fair Appetite: Good Muscle strength/Tone: Normal Gait/Station: Normal Psychiatric Findings - Problem List (Advance 1, 2,3) (1) Anemia Current Visit: Yes Status: Chronic (2) Cocaine dependence Current Visit: Yes Status: Chronic Qualifiers: (3) Nicotine dependence Current Visit: Yes Status: Chronic - Initial Treatment Plan Initial Treatment Plan: Will monitor porgress.
--- NOTE | 2018-07-16 10:10 | PN ---
[facility] Progress Note Note: PT C/O ABNORMAL VAGINAL DISCHARGE WITH FOUL SMELLING ODOR,FREQUENT URINATION AND CLEAR SECRETION. REPORTS HAD SIMILAR SX IN THE PAST AND TREATED WITH FLAGYL WITH RESOLUTION OF SX. Vital Signs 07/16/18 07/16/18 03:30 07:12 Temperature 98.4 F Pulse Rate 78 Respiratory 16 16 Rate Blood Pressure 122/80 IMPRESSION:BV PLAN:FLAGYL 500 MG PO BID X 7 DAYS INCREASE PO FLUIDS
[2018-07-16] MEDS: metroNIDAZOLE 250 MG TABLET PO SCH ×2 (11:01→21:33)
[2018-07-16] MEDS: THIAMINE HCL 100 MG TABLET (FP) PO SCH (21:33)
[2018-07-17] MEDS: metroNIDAZOLE 250 MG TABLET PO SCH ×2 (09:45→21:45)
[2018-07-17] MEDS: FERROUS SO4 325 MG TABLET (FP) PO SCH (09:45)
[2018-07-17] MEDS: DOCUSATE SODIUM 100 MG CAPSULE (FP) PO SCH ×2 (09:45→21:45)
[2018-07-17] MEDS: PRENATAL VITAMINS W/ FOLIC ACID TABLET (FP) PO SCH (09:46)
[2018-07-17] MEDS: THIAMINE HCL 100 MG TABLET (FP) PO SCH (21:45)
[2018-07-17] MEDS ORDERED: PT OWN MED DRAWER 7, Y5N ONE (22:40)
[2018-07-18] MEDS: DOCUSATE SODIUM 100 MG CAPSULE (FP) PO SCH ×2 (09:43→21:12)
[2018-07-18] MEDS: FERROUS SO4 325 MG TABLET (FP) PO SCH (09:43)
[2018-07-18] MEDS: metroNIDAZOLE 250 MG TABLET PO SCH ×2 (09:43→21:12)
[2018-07-18] MEDS: PRENATAL VITAMINS W/ FOLIC ACID TABLET (FP) PO SCH (09:44)
[2018-07-18] MEDS: THIAMINE HCL 100 MG TABLET (FP) PO SCH (21:12)
[2018-07-19] MEDS: metroNIDAZOLE 250 MG TABLET PO SCH ×2 (10:02→23:24)
[2018-07-19] MEDS: FERROUS SO4 325 MG TABLET (FP) PO SCH (10:03)
[2018-07-19] MEDS: PRENATAL VITAMINS W/ FOLIC ACID TABLET (FP) PO SCH (10:03)
[2018-07-19] MEDS: DOCUSATE SODIUM 100 MG CAPSULE (FP) PO SCH ×2 (10:03→23:24)
[2018-07-19] MEDS: THIAMINE HCL 100 MG TABLET (FP) PO SCH (23:24)
[2018-07-19] MEDS ORDERED: PT OWN MED DRAWER 7, Y5N ONE ×2 (23:27→23:30)
[2018-07-20] MEDS ORDERED: PT OWN MED DRAWER 7, Y5N ONE ×2 (08:51→15:18)
[2018-07-20] MEDS: DOCUSATE SODIUM 100 MG CAPSULE (FP) PO SCH ×2 (09:43→21:46)
[2018-07-20] MEDS: FERROUS SO4 325 MG TABLET (FP) PO SCH (09:43)
[2018-07-20] MEDS: metroNIDAZOLE 250 MG TABLET PO SCH ×2 (09:43→21:46)
[2018-07-20] MEDS: PRENATAL VITAMINS W/ FOLIC ACID TABLET (FP) PO SCH (09:44)
[2018-07-20] MEDS ORDERED: COLLOIDAL OATMEAL 1 BAR EACH TP PRN (14:17)
[2018-07-20] MEDS: MINERAL OIL/PETROLAT/WATER TOPICAL CREAM 113 GM JAR TP SCH (15:16)
[2018-07-20] MEDS: THIAMINE HCL 100 MG TABLET (FP) PO SCH (21:46)
[2018-07-21] MEDS: FERROUS SO4 325 MG TABLET (FP) PO SCH (10:07)
[2018-07-21] MEDS: DOCUSATE SODIUM 100 MG CAPSULE (FP) PO SCH ×2 (10:07→21:50)
[2018-07-21] MEDS: MINERAL OIL/PETROLAT/WATER TOPICAL CREAM 113 GM JAR TP SCH (10:07)
[2018-07-21] MEDS: PRENATAL VITAMINS W/ FOLIC ACID TABLET (FP) PO SCH (10:07)
[2018-07-21] MEDS: metroNIDAZOLE 250 MG TABLET PO SCH ×2 (10:07→21:50)
[2018-07-21] MEDS: THIAMINE HCL 100 MG TABLET (FP) PO SCH (21:49)
[2018-07-21] MEDS ORDERED: PT OWN MED DRAWER 7, Y5N ONE ×2 (22:23→22:34)
[2018-07-22] MEDS: PRENATAL VITAMINS W/ FOLIC ACID TABLET (FP) PO SCH (09:57)
[2018-07-22] MEDS: DOCUSATE SODIUM 100 MG CAPSULE (FP) PO SCH ×2 (09:57→21:18)
[2018-07-22] MEDS: FERROUS SO4 325 MG TABLET (FP) PO SCH (09:57)
[2018-07-22] MEDS: MINERAL OIL/PETROLAT/WATER TOPICAL CREAM 113 GM JAR TP SCH (09:57)
[2018-07-22] MEDS: metroNIDAZOLE 250 MG TABLET PO SCH ×2 (09:57→21:18)
[2018-07-22] MEDS ORDERED: PT OWN MED DRAWER 7, Y5N ONE ×2 (21:13→22:59)
[2018-07-22] MEDS: THIAMINE HCL 100 MG TABLET (FP) PO SCH (21:18)
[2018-07-23] MEDS ORDERED: PT OWN MED DRAWER 7, Y5N ONE ×2 (08:47→21:09)
[2018-07-23] MEDS: metroNIDAZOLE 250 MG TABLET PO SCH (10:26)
[2018-07-23] MEDS: DOCUSATE SODIUM 100 MG CAPSULE (FP) PO SCH ×2 (10:26→21:31)
[2018-07-23] MEDS: PRENATAL VITAMINS W/ FOLIC ACID TABLET (FP) PO SCH (10:26)
[2018-07-23] MEDS: FERROUS SO4 325 MG TABLET (FP) PO SCH (10:26)
[2018-07-23] MEDS: MINERAL OIL/PETROLAT/WATER TOPICAL CREAM 113 GM JAR TP SCH (10:27)
[2018-07-23] MEDS: THIAMINE HCL 100 MG TABLET (FP) PO SCH (21:31)
[2018-07-24] MEDS: DOCUSATE SODIUM 100 MG CAPSULE (FP) PO SCH ×2 (09:46→21:21)
[2018-07-24] MEDS: PRENATAL VITAMINS W/ FOLIC ACID TABLET (FP) PO SCH (09:46)
[2018-07-24] MEDS: MINERAL OIL/PETROLAT/WATER TOPICAL CREAM 113 GM JAR TP SCH (09:46)
[2018-07-24] MEDS: FERROUS SO4 325 MG TABLET (FP) PO SCH (09:46)
[2018-07-24] MEDS: THIAMINE HCL 100 MG TABLET (FP) PO SCH (21:21)
[2018-07-25] MEDS: PRENATAL VITAMINS W/ FOLIC ACID TABLET (FP) PO SCH (09:48)
[2018-07-25] MEDS: FERROUS SO4 325 MG TABLET (FP) PO SCH (09:48)
[2018-07-25] MEDS: MINERAL OIL/PETROLAT/WATER TOPICAL CREAM 113 GM JAR TP SCH (09:49)
[2018-07-25] MEDS: DOCUSATE SODIUM 100 MG CAPSULE (FP) PO SCH ×2 (09:49→21:19)
[2018-07-25] MEDS: THIAMINE HCL 100 MG TABLET (FP) PO SCH (21:19)
[2018-07-26 06:56] VITALS: BP 130/87; PULSE 73; TEMP 98.6
--- NOTE | 2018-07-26 08:38 | PN ---
Psychiatric Progress Note Vital Signs: Vital Signs Period Temp Pulse Resp BP Sys/Alberts Pulse Ox Last 24 Hr 98.6 F 73 16-16 130/87 Date of Session: 07/26/18 Chief Complaint:: Discharge visit HPI: Patient addressed Cociane dependence . Current Medications: Active Medications Generic Name Dose Route Start Last Admin Trade Name Freq PRN Reason Stop Dose Admin Acetaminophen 650 mg 07/14/18 18:39 Tylenol - PO Q4H PRN FEVER Al Hydroxide/Mg Hydroxide 30 ml 07/14/18 18:39 Mylanta Oral Suspension - PO Q6H PRN DYSPEPSIA Docusate Sodium 100 mg 07/14/18 22:00 07/25/18 21:19 Colace - PO 100 mg BID RADHA Administration Eucalyptus/Menthol/Phenol/Sorbitol 1 each 07/14/18 18:39 Cepastat Lozenge - MM Q4H PRN SORE THROAT Ferrous Sulfate 325 mg 07/15/18 10:00 07/25/18 09:48 Feosol - PO 325 mg DAILY RADHA Administration Guaifenesin 10 ml 07/14/18 18:39 Robitussin Dm - PO Q6H PRN COUGH Hydroxyzine Pamoate 50 mg 07/14/18 18:39 Vistaril - PO Q4H PRN AGITATION Ibuprofen 400 mg 07/14/18 18:39 Motrin - PO Q6H PRN Pain Level 4-6 Loperamide HCl 4 mg 07/14/18 18:39 Imodium - PO Q6H PRN DIARRHEA Magnesium Citrate 300 ml 07/14/18 18:39 Citroma - PO Q48H PRN CONSTIPATION Magnesium Hydroxide 30 ml 07/14/18 18:39 Milk Of Magnesia - PO DAILY PRN CONSTIPATION Melatonin 5 mg 07/14/18 22:00 Melatonin PO HS PRN INSOMNIA Multi-Ingredient Lotion 1 applic 07/20/18 14:30 07/25/18 09:49 Eucerin (Small Jar) - TP Not Given DAILY RADHA Multivit/Folic Acid/Iron 1 tab 07/15/18 10:00 07/25/18 09:48 Vitamins (Sjr) - PO 1 tab DAILY RADHA Administration Pseudoephedrine/Triprolidine 1 combo 07/14/18 18:39 Actifed - PO TID PRN NASAL CONGESTION Thiamine HCl 100 mg 07/14/18 22:00 10/07/18 21:19 Vitamin B1 - PO 100 mg HS RADHA Administration Current Side Effect: No Lab tests ordered: No Lab tests reviewed: Yes Provider note:: Patient completed this program today.She has met her treatment goals and will continue to address her issues on outpatient basis. Mental Status Exam - Mental Status Exam Alert and Oriented to: Time, Place, Person Cognitive Function: Grossly Intact Patient Appearance: Well Groomed Mood: Hopeful, Euthymic Affect: Appropriate, Mood Congruent Patient Behavior: Cooperative Speech Pattern: Clear Voice Loudness: Normal Thought Process: Goal Oriented Thought Disorder: Not Present Hallucinations: Denies Suicidal Ideation: Denies Homicidal Ideation: Denies Insight/Judgement: Fair Sleep: Fair Appetite: Fair Muscle strength/Tone: Normal Gait/Station: Normal Psychiatric Treatment Plan - Problem List (1) Anemia Current Visit: Yes (2) Cocaine dependence Current Visit: Yes Qualifiers: (3) Nicotine dependence Current Visit: Yes
[2018-07-26] MEDS ORDERED: PT OWN MED DRAWER 7, Y5N ONE (08:42)
== END 2018-07-26 09:14 | disposition home or self-care (01) | DRG 772 ==
LOC: YASAS 17:01 → Y3E 17:35
PROVIDERS: ADMIT Psychiatry & Neurology Psychiatry; ATTEND Psychiatry & Neurology Psychiatry
PROC: HZ42ZZZ Group Counseling for Substance Abuse Treatment, Cognitive-Behavioral (ICD-10-PCS; principal; 2018-07-14)
DX: F14.20 Cocaine dependence, uncomplicated (principal); F17.210 Nicotine dependence, cigarettes, uncomplicated; D64.9 Anemia, unspecified; N76.0 Acute vaginitis; B96.89 Other specified bacterial agents as the cause of diseases classified elsewhere